=== PATIENT | male | born 1965 | race Caucasian/White ===

== ENCOUNTER 2024-12-27 13:46 | Emergency (ER) | payer OTHER, SELFPAY ==
[2024-12-27 13:49] VITALS: BP 111/64; PULSE 94; RESP 18; TEMP 36.4; O2SAT 96; BMI 19.1
[2024-12-27] MEDS: LIDOCAINE 2% (GLYDO) 6 ML GEL TOP (14:07)
--- NOTE | 2024-12-27 14:22 | ED.RECABL ---
HPI - Recheck/Abnormal Lab/Rx General Chief Complaint: Recheck/Abnormal Lab/Rx Stated Complaint: Cancer Patient/Feeding tube came out Time Seen by Provider: 12/27/24 14:10 Source: patient and family Mode of arrival: Ambulatory Limitations: no limitations History of Present Illness HPI narrative: 59-year-old male history of throat cancer has a G-tube in place he was doing his feeds today when it fell out about 30 minutes prior to arrival. He states it was placed in June of 2024 has not had it replaced since was placed at [facility]. Patient states he has not been having any issues otherwise he was not had any pain he has not had any discharge. Denies any other new issues today. Dr. Coello is his primary care physician. Follows regularly with Oncology. Follows through [facility]. Related Data Home Medications Medication Instructions Recorded Confirmed paroxetine HCl 10 mg/5 mL oral 5 mg PO DAILY 12/17/24 12/17/24 suspension Allergies Allergy/AdvReac Type Severity Reaction Status Date / Time No Known Drug Allergies Allergy Verified 12/17/24 06:45 Review of Systems Review of Systems ROS Unobtainable: All systems reviewed & are unremarkable except as noted in HPI and below Patient History Social History Smoking Status: Never smoker Smoking Status: Never smoker Exam Narrative Exam Narrative: GENERAL: Alert and oriented x three, male in mild distress HEENT: Head normocephalic, atraumatic, EOMI, pupils reactive, moist mucous membranes, patient does have some dysarthria at baseline has bandage on left neck which he states covers chronic wound. NECK: Supple, full range of motion CARDIOVASCULAR: Regular rate and rhythm without murmurs, rubs or gallops. RESPIRATORY: Breath sounds equal bilaterally, no wheezes rales or rhonchi. ABDOMEN: Soft, nontender. Normoactive bowel sounds all 4 quadrants. No guarding or rebound, rigidity, no mass, patient's G-tube opening no drainage no erythema no other changes. It is nontender. : No CVA tenderness EXTREMITIES: Normal range of motion, no clubbing or edema. Neurovascularly intact NEUROLOGICAL: Cranial nerves II through XII grossly intact. Moving all extremities SKIN: Warm, dry, no petechiae, no rashes or lesions. Initial Vital Signs Initial Vital Signs: Vital Signs Temperature 97.5 F L 12/27/24 13:49 Pulse Rate 94 H 12/27/24 13:49 Respiratory Rate 18 12/27/24 13:49 Blood Pressure 111/64 12/27/24 13:49 Pulse Oximetry 96 12/27/24 13:49 Oxygen Delivery Method Room Air 12/27/24 13:49 Course Orders Ordered: Discontinued Medications Lidocaine HCl (Lidocaine 2% (Glydo) 6 Ml Gel) 6 ml TOP NOW ONE Stop: 12/27/24 14:04 Last Admin: 12/27/24 14:07 Dose: 6 ml Documented By: SB Vital Signs Vital signs: Vital Signs - 8 hr 12/27/24 13:49 Temperature 97.5 F L Pulse Rate 94 H Respiratory Rate 18 Blood Pressure 111/64 Pulse Oximetry 96 Oxygen Delivery Method Room Air MDM - Recheck/Abnormal Lab/Rx MDM Narrative Medical decision making narrative: 59-year-old male has G-tube in place that fell out while he was doing his feeds patient states it was placed last June has not had any issues he states it has not been replaced since then. Follow at about 30 minutes prior to arrival we will see if we have G-tube available in the right size hears if not we will place a Kat catheter. Unable to find a G-tube in the right for placement so placed a 16 Portuguese Kat catheter he was too small amount of glide 0 advanced easily with gentle pressure and balloon was inflated with 10 mL of saline. Pulled back and appears to be in place. Had x-ray with contrast to evaluate for placement. X-ray shows intraluminal contrast with proximal duodenum and stomach through the percutaneous gastrostomy tube. Patient is to call tomorrow morning to set up follow up to have it replaced. We will give local general surgery contact but had it placed through [facility] discussed he can also chat with the oncology team they might be able to facilitate this is well. Discharge Plan Departure Patient Disposition: Home Clinical Impression: Malfunction of percutaneous endoscopic gastrostomy (PEG) tube Activity Restrictions/Additional Instructions: Your 16 Portuguese catheter fell out today we did not have an appropriate sized feeding tube so was replaced with a Kta catheter and needs to be changed out. You can call general surgery locally or follow up with your surgery team. Your oncology team may also be able to help facilitate having it changed out. You can use the catheter in place for your feeds but may encounter a little bit more resistance and require a little bit more to flush them. Please return if you have new abdominal back or flank pain, any fevers, if you are having any other difficulty. Prescriptions: No Action paroxetine HCl 10 mg/5 mL suspension 5 mg PO DAILY Patient Comments: [NO ORIGINAL SIG] Referrals: Romel Cisneros MD [Physician] - Kena Menon DO [Primary Care Provider] - Stand Alone Forms: Patient Portal/API/Survey
--- NOTE | 2024-12-27 14:49 | DI.RAD.S_ITS ---
PROCEDURE: XR ABDOMEN 1V INDICATIONS: Gtube fell out, replaced. TECHNIQUE: One view of the abdomen acquired. COMPARISON: None. FINDINGS: Surgical changes and devices: Percutaneous gastrostomy tube present. Bowel: Bowel gas pattern is normal. Intraluminal contrast within the stomach and proximal duodenum. Soft tissues: No suspicious abdominal calcifications. Visualized solid organ contours appear normal in size. Bones: No suspicious bony lesions. IMPRESSION: Intraluminal contrast within the proximal duodenum and stomach, pushed through the percutaneous gastrostomy tube. Dictated by: Don Govea M.D. on 12/27/2024 at 15:35 Approved by: Don Govea M.D. on 12/27/2024 at 15:35
[2024-12-27 16:01] VITALS: BP 109/55; PULSE 68; RESP 18; O2SAT 99
== END 2024-12-27 16:07 | disposition home or self-care (01) ==
PROVIDERS: Emergency Provider Emergency Medicine; PCP Family Medicine
DX: K94.23 Gastrostomy malfunction (principal)
CPT/HCPCS: 43762; 74018; 99282; 99283

== ENCOUNTER → 2025-03-16 16:02 | Outpatient (CLI) | payer OTHER, SELFPAY | PROVIDERS: Family Provider Family Medicine; PCP Family Medicine; Referring Provider Family Medicine; Visit Provider Surgery | DX: G60.9 Hereditary and idiopathic neuropathy, unspecified (principal); L98.492 Non-pressure chronic ulcer of skin of other sites with fat layer exposed; Z85.810 Personal history of malignant neoplasm of tongue; Z92.3 Personal history of irradiation; L53.9 Erythematous condition, unspecified | CPT/HCPCS: 97602; 99203; 99213 ==